=== PATIENT | female | born 1965 | race Caucasian/White ===

== ENCOUNTER 2019-06-22 21:42 | Emergency (ER) | payer MEDICARE ==
[~2019-06-22] VITALS: Ht 162.6 cm; Wt 70.0 kg
[~2019-06-22 21:42] MED LIST: CLON-364 PO; DESV50TA PO; LORA0.5T PO; LURA20TA PO
[2019-06-22 21:48] VITALS: BP 131/60
--- NOTE | 2019-06-22 22:20 | NUR ---
Pt states she does not want pain medicine at this time. Awaiting splint to d/c.
== END 2019-06-23 02:07 | disposition home or self-care (01) ==
LOC: ED 06-23
DX: S82.65XA Nondisplaced fracture of lateral malleolus of left fibula, initial encounter for closed fracture (principal); G89.11 Acute pain due to trauma; M25.572 Pain in left ankle and joints of left foot; W01.0XXA Fall on same level from slipping, tripping and stumbling without subsequent striking against object, initial encounter; Y93.89 Activity, other specified; Y92.098 Other place in other non-institutional residence as the place of occurrence of the external cause; Y99.8 Other external cause status
CPT/HCPCS: 29125; 99284

== ENCOUNTER 2021-01-04 15:28 | Emergency (ER) | payer MEDICARE ==
[~2021-01-04] VITALS: Ht 157.5 cm; Wt 80.0 kg
[2021-01-04] MEDS ORDERED: SODIUM CHLORIDE FLUSH 10ML SYR IVF ONE (16:00)
[2021-01-04] MEDS ORDERED: LORazepam 2 MG/ML, 1ML IVPush PRN (16:00)
[2021-01-04] MEDS ORDERED: SODIUM CHLORIDE 0.9% 1,000ML IVBOLUS ONE (16:00)
[2021-01-04] MEDS ORDERED: THIAMINE 100 MG in SODIUM CHLORIDE 0.9% 50 ML IVPB ONE (16:00)
[2021-01-04] MEDS ORDERED: LORazepam 2 MG/ML, 1ML ONE (16:10)
[2021-01-04 16:18] LABS: BASOPHILS % (AUTO) 0 % (0-1); EOSINOPHILS % (AUTO) 0 % (1-7); LYMPHOCYTES % (AUTO) 4 % (22-44); MEAN CORPUSCULAR HEMOGLOBIN 28.7 pg (27.0-34.8); MEAN CORPUSCULAR HGB CONC 33.2 g/dL (32.4-35.8); MONOCYTES % (AUTO) 4 % (2-9); NEUTROPHILS % (AUTO) 92 % (42-75); PLATELET COUNT 312 x10^3/uL (130-400); RED BLOOD COUNT 3.56 x10^6/uL (3.82-5.3); RED CELL DISTRIBUTION WIDTH 17.1 % (9.6-15.2)
[2021-01-04 16:24] LABS: ALANINE AMINOTRANSFERASE 40 U/L (12-78); ANION GAP 14 mmol/L (5-15); CALCIUM 9.4 mg/dL (8.5-10.1); CHLORIDE 96 mmol/L (98-107); CREATININE 1.03 mg/dL (0.55-1.02)
[2021-01-04 16:27] LABS: ALKALINE PHOSPHATASE 156 U/L (45-117); BILIRUBIN,TOTAL 1.6 mg/dL (0.2-1.0); TOTAL PROTEIN 7.7 g/dL (6.4-8.2)
--- NOTE | 2021-01-04 16:33 | NUR ---
PT BENEDICT. PER EMS PT IS GOING THROUGH ALCOHOL DETOX AND HAS NOT HAD A DRINK IN 4 DAYS. PT STATES SHE IS NOT IN DETOX, BUT THAT SHE JUST HAS HEAT STROKE. PT REPORTS DRINKING 3 BEERS/DAY. PT RESTING IN [facility], MONITORING IN PLACE, [place] AT THIS TIME, WCTM.
[2021-01-04] MEDS ORDERED: THIAMINE 100MG TABLET ONE (16:44)
[2021-01-04] MEDS ORDERED: THIAMINE 100MG TABLET PO ONE (17:00)
--- NOTE | 2021-01-04 18:51 | NUR ---
REPORT FROM HERMELINDA VILLALTASENIOR HR MANAGER OF CARE AT THIS TIME
--- NOTE | 2021-01-04 18:54 | NUR ---
REPORT TO PAWAN HOYT.
[2021-01-04 19:15] VITALS: BP 128/77
--- NOTE | 2021-01-04 19:16 | NUR ---
Patient/Caregiver given discharge instructions and they have confirmed that they understand the instructions. Patient ambulatory with steady gait.
== END 2021-01-04 19:26 | disposition home or self-care (01) ==
LOC: ED 19:20
DX: S33.5XXA Sprain of ligaments of lumbar spine, initial encounter (principal); R00.0 Tachycardia, unspecified; R11.2 Nausea with vomiting, unspecified; F10.139 Alcohol abuse with withdrawal, unspecified; Y90.0 Blood alcohol level of less than 20 mg/100 ml; W01.0XXA Fall on same level from slipping, tripping and stumbling without subsequent striking against object, initial encounter; Y93.01 Activity, walking, marching and hiking; Y92.410 Unspecified street and highway as the place of occurrence of the external cause; Y99.8 Other external cause status
CPT/HCPCS: 36415; 71046; 72110; 80053; 80320; 83690; 85025; 93005; 96361; 96374; 99285; J2060; J7030; G0480